=== PATIENT | female | born 1970 | race African-American/Black ===

== ENCOUNTER 2017-11-19 02:00 | Emergency (ER) | payer OTHER ==
[~2017-11-19] VITALS: Ht 160 cm; Wt 75.0 kg
[2017-11-19 04:00] VITALS: BP 132/80
[2017-11-19] MEDS ORDERED: KETOROLAC 60MG/2ML VIAL IM STA (11:08)
== END 2017-11-19 13:47 | disposition home or self-care (01) ==
LOC: ER 08:24
DX: M25.512 Pain in left shoulder (principal); Z88.1 Allergy status to other antibiotic agents
CPT/HCPCS: 73030; 96372; 99284; J1885

== ENCOUNTER 2023-07-16 19:13 | Emergency (ER) | payer OTHER ==
[~2023-07-16] VITALS: Ht 165.1 cm; Wt 75.0 kg
[2023-07-16 19:32] VITALS: BP 148/88; PULSE 92; RESP 16; TEMP 98.9; O2SAT 98
== END 2023-07-17 00:41 | disposition left against medical advice (07) ==
LOC: ER 19:13
DX: F10.129 Alcohol abuse with intoxication, unspecified (principal); J45.909 Unspecified asthma, uncomplicated; F19.90 Other psychoactive substance use, unspecified, uncomplicated; Z88.8 Allergy status to other drugs, medicaments and biological substances; Z98.51 Tubal ligation status; Y90.9 Presence of alcohol in blood, level not specified
CPT/HCPCS: 99283